=== PATIENT | male | born 2000 | race Caucasian/White ===

== ENCOUNTER 2020-04-07 02:22 | Emergency (ER) | payer SELFPAY ==
[~2020-04-07] VITALS: Ht 175.3 cm; Wt 71.2 kg
--- NOTE | 2020-04-07 02:33 | NUR ---
PT CAME TO THE ED C/O THROAT PAIN X TODAY. -SOB +SWOLLEN UVULA. PT AAOX4, VSS, RESPIRATIONS EVEN AND UNLABORED ON RA W/ NAD NOTED. AWAITING FOR MD PENDLETON. WILL MONITOR
--- NOTE | 2020-04-07 03:38 | NUR ---
DR FLOWERS IS AT THE BEDSIDE.
[2020-04-07] MEDS ORDERED: DEXAMETHASONE SOD PHOSPHATE 10 MG/ML VIAL ONE (04:08)
--- NOTE | 2020-04-07 04:08 | NUR ---
PT REC'D MEDICATION ORDERED.
--- NOTE | 2020-04-07 04:10 | NUR ---
PT IS TOLERATING PO WELL.
--- NOTE | 2020-04-07 04:10 | NUR ---
STREP SWAB WALKED TO LAB.
[2020-04-07] MEDS ORDERED: DEXAMETHASONE SOD PHOSPHATE 10 MG/ML VIAL IV ONE (04:30)
--- NOTE | 2020-04-07 05:16 | NUR ---
Patient discharged to home in stable condition. Written and verbal after care instructions given. Patient verbalizes understanding of instruction AND RX. PT AMBULATED OUT WITH A STEADY GAIT. PT'S MOTHER IS DRIVING THE PT HOME. VSS.
[2020-04-07 05:17] VITALS: BP 139/80
== END 2020-04-07 05:17 | disposition home or self-care (01) ==
LOC: ER 02:25
DX: K12.2 Cellulitis and abscess of mouth (principal); J02.0 Streptococcal pharyngitis
CPT/HCPCS: 87880; 99283; J1100; 86403-TC